=== PATIENT | female | born 1950 | race Caucasian/White ===

== ENCOUNTER 2017-09-30 16:19 | Emergency (ER) | payer MEDICARE, MEDICAID ==
[~2017-09-30] VITALS: Ht 157.5 cm; Wt 136.1 kg
[~2017-09-30 16:19] MED LIST: ACETAMINOPHEN-1 EAC1 PO; BENADRYL25 MG PO; BENTYL 20 MG TA20 M1 PO; CLEOCIN HCL300 MG PO; FLOMAX0.4 MG PO; IBUPROFEN 800800 M1 PO; LIDOCAINE VISC100 M1 SWISH&SPIT; MACROBID 100 M100 M1 PO; MACROBID 100 M100 M2 PO; MEDROLDOSEPACK PO; NEOSPORIN28 GM TP; NOHOMEMEDICATIONS; PHENAZOPYRIDIN200 M2 PO; PREDNISONE 20 M20 M1 PO; PROAIR HFA8.5 GM INH; TETRACYCLINE H500 MG PO; UNICOMPLEX M TA1 TA1 PO; VICODIN 5-3001 EACH PO; ZPAK PO
[2017-09-30] MEDS ORDERED: ANTIFUNGAL30 GM TOP (16:44)
[2017-09-30] MEDS ORDERED: AUGMENTIN 875-1 EACH PO (16:44)
[2017-09-30 16:52] VITALS: BP 177/82
== END 2017-09-30 16:54 | disposition home or self-care (01) ==
LOC: M.ERS 16:19
DX: L03.115 Cellulitis of right lower limb (principal); B35.3 Tinea pedis; Z90.710 Acquired absence of both cervix and uterus; Z88.1 Allergy status to other antibiotic agents; Z88.8 Allergy status to other drugs, medicaments and biological substances

== ENCOUNTER 2018-12-01 16:33 | Emergency (ER) | payer MEDICARE, MEDICAID ==
[~2018-12-01] VITALS: Ht 157.5 cm; Wt 161.0 kg
[~2018-12-01 16:33] MED LIST changes: +ANTIFUNGAL30 GM TOP; +AUGMENTIN 875-1 EACH PO
[2018-12-01] MEDS ORDERED: CLEOCIN HCL300 MG PO (17:10)
[2018-12-01] MEDS ORDERED: CENTANY30 GM TOP (17:11)
[2018-12-01 17:19] VITALS: BP 173/79
== END 2018-12-01 17:19 | disposition home or self-care (01) ==
LOC: M.ERS 16:33
DX: L03.114 Cellulitis of left upper limb (principal); E66.01 Morbid (severe) obesity due to excess calories; Z68.44 Body mass index [BMI] 60.0-69.9, adult; Z90.49 Acquired absence of other specified parts of digestive tract; Z90.710 Acquired absence of both cervix and uterus; Z98.51 Tubal ligation status; Z88.1 Allergy status to other antibiotic agents; Z88.8 Allergy status to other drugs, medicaments and biological substances

== ENCOUNTER 2019-08-03 15:34 | Emergency (ER) | payer OTHER, MEDICAID ==
[~2019-08-03] VITALS: Ht 157.5 cm; Wt 153.8 kg
[~2019-08-03 15:34] MED LIST changes: +CENTANY30 GM TOP
[2019-08-03] MEDS ORDERED: HYDROCODON-ACE1 EAC7 PO (16:06)
[2019-08-03] MEDS ORDERED: CLEOCIN HCL300 MG PO (16:06)
[2019-08-03 16:57] VITALS: BP 119/56
== END 2019-08-03 16:58 | disposition home or self-care (01) ==
LOC: M.ERS 15:34
DX: K04.7 Periapical abscess without sinus (principal); E66.01 Morbid (severe) obesity due to excess calories; Z88.1 Allergy status to other antibiotic agents; Z88.2 Allergy status to sulfonamides; Z88.8 Allergy status to other drugs, medicaments and biological substances; Z90.89 Acquired absence of other organs; Z90.710 Acquired absence of both cervix and uterus; Z98.51 Tubal ligation status